=== PATIENT | male | born 1980 | race American Indian/Alaskan Native ===

== ENCOUNTER 2018-12-20 04:09 | Emergency (ER) | payer MEDICAID ==
[2018-12-20] MEDS ORDERED: TYLENOL ONE (04:26)
[2018-12-20] MEDS ORDERED: TYLENOL PO ONE (04:30)
[2018-12-20 04:33] VITALS: BP 119/66
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
== END 2018-12-20 05:47 | disposition home or self-care (01) ==
LOC: ED 04:09
DX: S01.512A Laceration without foreign body of oral cavity, initial encounter (principal); Y04.0XXA Assault by unarmed brawl or fight, initial encounter; Y93.89 Activity, other specified; Y92.89 Other specified places as the place of occurrence of the external cause; Y99.8 Other external cause status
CPT/HCPCS: 99282